=== PATIENT | female | born 1945 | race Caucasian/White ===

== ENCOUNTER 2021-09-05 09:24 | Outpatient (CLI) | payer MEDICARE, OTHER | END 2021-09-05 09:25 | disposition EMS.NT | LOC: EMS 09:24 | DX: R55 Syncope and collapse (principal) ==

== ENCOUNTER 2024-01-08 10:41 | Outpatient (CLI) | payer MEDICARE, OTHER ==
--- NOTE | 2024-01-08 11:19 | DEXA Report ---
PROCEDURE: Dexa Spine and/or Hip INDICATIONS: POST MENOPAUSAL TECHNIQUE: Dual energy x-ray absorptiometry (DXA) was performed on a [employer] System. Regions measur ed are the AP Spine, femoral neck, and if needed forearm. COMPARISON: None FINDINGS: Lumbar Spine: L4 excluded due to increased density. Bone Mineral Density: 1.095 g/cm/cm,T score: -0.6. Left Forearm: Bone Mineral Density: 0.461 g/cm/cm, T score: -4.7. (T score greater or equal to -1.0: NORMAL) (T score from -1.1 to -2.4: OSTEOPENIA) (T score less than or equal to -2.5 to: OSTEOPOROSIS) Impression: By WHO criteria, this patient has osteoporosis. Patients with diagnosis of osteoporosis or osteopenia should have regular bone mineral density assess ment. For those eligible for Medicare, routine testing is allowed once every 2 years. Testing frequ ency can be increased for patients who have rapidly progressing disease or for those who are receivin g medical therapy to restore bone mass. Reviewed by: Brown Smith MD on 01/08/2024 11:17 AM PDT Approved by: Brown Smith MD on 01/08/2024 11:17 AM PDT Station ID: [id number]
== END 2024-01-08 10:42 | disposition home or self-care (01) ==
LOC: DI 10:41
PROVIDERS: ATTEND Student in an Organized Health Care Education/Training Program
DX: M81.0 Age-related osteoporosis without current pathological fracture (principal)